=== PATIENT | female | born 1945 | race Caucasian/White ===

== ENCOUNTER 2016-08-24 17:45 | Emergency (ER) | payer OTHER ==
--- NOTE | 2016-08-24 18:56 | PROVIDER DOCUMENTATION ---
HPI-General Adult - General Source: patient - History of Present Illness -Gen Adult Nature of Presenting Problems: 70 y/o f presents to the ed with right shoulder due to a fall sustained just prior to arrival. upon arrival pt c/o right shoulder pain/tenderness. pt states it hurts upon movement and has limited range of motion. pt denies any other injuries. Location of Pain/Injury: reports: upper extremity (right shoulder) Pain Radiation: denies: no radiation Quality of Pain: reports: aching Severity: reports: mild Onset/Duration: reports: just prior to arrival Timing: reports: still present Similar Symptoms Previously?: No Recently seen or treated by another doctor?: No <Raina Medrano - Last Filed: 08/24/16 18:52> <Yenni Redmond - Last Filed: 08/24/16 19:00> - General Chief Complaint: Extremity Injury Stated Complaint: FALL/SHOULDER INJURY Time Seen by Provider: 08/24/16 18:44 Allergies/Adverse Reactions: Patient Allergies Allergy/AdvReac Type Severity Reaction Status Date / Time Penicillins Allergy RASH Verified 06/20/15 08:15 Home Medications: Bisoprolol Fumarate/Hctz [Ziac 10-6.25 mg Tablet] 1 tab PO QAM 06/20/15 Donepezil [Aricept] 10 mg PO QAM 06/20/15 Lamotrigine [Lamictal Xr] 50 mg PO QAM 06/20/15 Metformin [Glucophage] 500 mg PO BID CC 06/20/15 PRAVAstatin [Pravachol] 20 mg PO QHS 06/20/15 Pantoprazole [Protonix] 40 mg PO BID 06/20/15 Sertraline HCl [Zoloft] 200 mg PO QAM 06/20/15 Review of Systems - Adult - REVIEW OF SYSTEMS - ADULT Constitutional: denies: chills, fever Cardiovascular: denies: chest pain, palpitations Neurological: denies: dizziness/vertigo, headache/migraines <Raina Medrano - Last Filed: 08/24/16 18:52> Past History - Adult - PAST MEDICAL HISTORY-ADULT Review of Records: reports: Old Records Reviewed, Nursing Assessment Review, Medications Reviewed Cardiovascular: reports: HTN, hyperlipidemia Respiratory: reports: sleep apnea (cpap) Neurological: reports: Alzheimer's Endocrine/Immune: reports: Diabetes - PRIOR SURGERIES/PROCEDURES Surgical/Procedure History: reports: tonsillectomy - IMMUNIZATION STATUS Childhood Immunizations: See Nurse Assessment Flu Vaccine: See Nurse Assessment - SOCIAL HISTORY Smoking: quit greater than 1 year Substance Use: alcohol Alcohol Use Frequency: occasionally <Raina Medrano - Last Filed: 08/24/16 18:52> Physical Exam-General - PHYSICAL EXAM-ADULT Initial Vital Signs Reviewed: Yes - CONSTITUTIONAL General Appearance: alert, no apparent distress - EYES Eyes: PERRL/EOMI, pink conjunctivae, fundi clear, no AV nicking - HEAD, EARS, NOSE, MOUTH & THROAT HENMT: normocephalic/atraumatic, moist mucous membranes, normal ENT inspection - NECK Neck: non-tender, full range of motion, supple - RESPIRATORY Respiratory: chest non-tender, lungs clear, normal breath sounds - CARDIOVASCULAR Cardiovascular: normal peripheral pulses, regular rate, rhythm - GASTROINTESTINAL (ABDOMEN) Abdominal Exam: normal bowel sounds, non tender, soft - LYMPHATIC Lymphatic: no adenopathy - MUSCULOSKELETAL Back Exam: normal inspection Extremity: tenderness (right shoulder). negative: normal range of motion, deformity - SKIN Integumentary: normal color, normal turgor, warm/dry - PSYCHIATRIC Psych/Mental Status: normal mood/affect, normal thought content, normal thought process, oriented x 3 <Raina Medrano - Last Filed: 08/24/16 18:52> Progress - PLAN OF CARE/RESULTS Progress/Plan/Lab Results: Orders Category Date Time Status Arm Sling DIRECTED Care 08/24/16 18:59 Ordered SHOULDER-RIGHT [RAD] Stat Exams 08/24/16 18:24 Taken Hydrocodone/APAP 7.5 mg/325 mg [[facility]-7.5] Med 08/24/16 18:59 Once 1 each PO NOW ONE Ondansetron Odt [Zofran Odt] Med 08/24/16 18:59 Once 4 mg PO NOW ONE Vital Signs Temp Pulse Resp BP Pulse Ox 08/24/16 18:17 98.1 F 62 20 159/68 97 Penicillins Allergy (Verified 06/20/15 08:15) RASH Bisoprolol Fumarate/Hctz [Ziac 10-6.25 mg Tablet] 1 tab PO QAM 06/20/15 Donepezil [Aricept] 10 mg PO QAM 11/03/15 Lamotrigine [Lamictal Xr] 50 mg PO QAM 06/20/15 Metformin [Glucophage] 500 mg PO BID CC 06/20/15 PRAVAstatin [Pravachol] 20 mg PO QHS 06/20/15 Pantoprazole [Protonix] 40 mg PO BID 06/20/15 Sertraline HCl [Zoloft] 200 mg PO QAM 06/20/15 Docusate Sodium [Colace] 100 mg PO BID PRN PRN #20 capsule 08/24/16 Hydrocodone/APAP 7.5 mg/325 mg [[facility]-7.5] 1 each PO Q6H PRN PRN #20 tablet 03/03 Ondansetron [Zofran] 4 mg PO Q6H PRN PRN #20 tablet 08/24/16 Discussed Xray results and f/u with pt. - XRAY 1 XRAY: Right XRAY Study: Shoulder XRAY Interpretation: humeral fx, comminuted, mildly displaced - CONSULTS/PCP/HOSPITALIST Notification #1 *Consult/PCP/Hospitalist*: Dr. Coughlin Time Discussed: 18:54 Reason/Comments: humeral fx Consult Disposition: F/U in office (at [facility] on Friday or Friday ; place in sling for now.) <Yenni Redmond - Last Filed: 08/24/16 19:00> Departure <Raina Medrano - Last Filed: 08/24/16 18:52> - Departure Time of Disposition Order: 18:56 Certified Medical Emergency: Emergent <Yenni Redmond - Last Filed: 08/24/16 19:00> - Departure DIAGNOSIS: Humeral head fracture Qualifiers: Encounter type: initial encounter Fracture type: closed Laterality: right Qualified Code(s): S42.291A - Other displaced fracture of upper end of right humerus, initial encounter for closed fracture Disposition: HOME Condition: Stable Additional Instructions: Follow up with specialist on Friday for recheck. Take medications as directed. Keep arm in sling until evaluated by specialist. ED Follow Up Instructions: You have been treated by a care provider in the Emergency Department. These instructions are being provided to you so you can have an understanding of how to care for yourself upon discharge. Upon discharge from the Emergency Department, you are responsible for making arrangements for follow-up care by a physician of your choice. Take all prescribed medications as directed. Return to the Emergency Department immediately for any new or worsening symptoms. You may call the Physician Referral phone number at [phone] to obtain a list of Physicians who are taking new patients. Prescriptions: Docusate Sodium [Colace] 100 mg PO BID PRN PRN #20 capsule PRN Reason: Constipation Hydrocodone/APAP 7.5 mg/325 mg [[facility]-7.5] 1 each PO Q6H PRN PRN #20 tablet PRN Reason: Pain Ondansetron [Zofran] 4 mg PO Q6H PRN PRN #20 tablet PRN Reason: Nausea Referrals: Bandar Su DO [Primary Care Provider] - Jose Wise MD [STAFF PHYSICIAN] - Attestation - Physician/ Mid-level Attestation Patient care was provided by Mid-level provider (METAL OR WOOD BLOCKER/PA):: Yes Mid-level provider:: Yenni Redmond Mid-level documentation review:: The Mid-level provider documentation, treatment plan and medical decision making was reviewed by the physician who agrees with all treatment and medical decision making by the [facility]. <Yenni Redmond - Last Filed: 08/24/16 19:00> Physician Attestation
[2016-08-24] MEDS ORDERED: NORCO-7.5 PO ONE (18:59)
[2016-08-24] MEDS ORDERED: ZOFRAN ODT PO ONE (18:59)
[2016-08-24 19:07] VITALS: BP 133/61
--- NOTE | 2016-08-24 23:23 | Diag Imaging Result Document ---
PROCEDURE NAME: SHOULDER-RIGHT - 08/24/2016 PLAIN RADIOGRAPH THE RIGHT SHOULDER 3 VIEWS: COMPARISON: None available. FINDINGS: There is a comminuted fracture involving the right humeral neck with impaction of the shaft and mild displacement of a few bony fragments. No other definite fracture, dislocation, or intrinsic osseous lesion is appreciated. IMPRESSION: Fracture of the proximal humerus as described.
== END 2016-08-24 20:16 | disposition home or self-care (01) ==
LOC: ED 17:45
DX: S42.291A Other displaced fracture of upper end of right humerus, initial encounter for closed fracture (principal); M25.511 Pain in right shoulder; I10 Essential (primary) hypertension; E78.5 Hyperlipidemia, unspecified; E11.9 Type 2 diabetes mellitus without complications; G47.30 Sleep apnea, unspecified; G30.9 Alzheimer's disease, unspecified; F02.80 Dementia in other diseases classified elsewhere, unspecified severity, without behavioral disturbance, psychotic disturbance, mood disturbance, and anxiety; Z79.899 Other long term (current) drug therapy; Z87.891 Personal history of nicotine dependence; W19.XXXA Unspecified fall, initial encounter
CPT/HCPCS: 99283